=== PATIENT | male | born 1945 | race Caucasian/White ===

== ENCOUNTER 2020-01-01 09:48 | Observation (INO) | payer MEDICARE, OTHER ==
[~2020-01-01] VITALS: Ht 193 cm; Wt 111.6 kg
[~2020-01-01 09:48] MED LIST: CITA20TA6 PO; DIAZ5TAB PO; EPHEDRINE 50 MG/ML, 1ML IVPush PRN; GABA300C PO; GABA300C10 PO; HYDR-3240 PO; HYDR-3246 PO; HYDR25TA6 PO; LABETALOL 5MG/ML, 20ML IV PRN; LISI40TA PO; MEPERIDINE/PF 25MG/0.5ML IVPush PRN; MORP-52 PO; ONDANSETRON 2MG/ML, 2ML IVPush PRN; OXYC1TAB18 PO; OXYcodone 5 MG/5 ML ORAL.SOL UDC PO PRN; PROMETHAZINE 25 MG/ML, 1ML IVPush PRN; TRAZ-175 PO; hydrALAzine 20 MG/ML, 1ML IV PRN
[2020-01-01] MEDS ORDERED: LIDOCAINE-MPF 2% ,5ML ONE (10:15)
[2020-01-01] MEDS ORDERED: FENTANYL PF 250 MCG/5ML ONE (10:16)
[2020-01-01] MEDS ORDERED: BUPIVACAINE/PF 0.5% ONE (10:17)
[2020-01-01 10:18] VITALS: BP 167/90
[2020-01-01] MEDS ORDERED: CHLORHEXIDINE 15 ML UDC ONE (10:28)
[2020-01-01] MEDS ORDERED: CHLORHEXIDINE 15 ML UDC MM ONE (10:30)
[2020-01-01] MEDS ORDERED: ACETAMINOPHEN 500 MG TABLET PO ONE (10:30)
[2020-01-01] MEDS: LACTATED RINGERS 1,000 ML IV SCH ×2 (10:50→17:11)
[2020-01-01] MEDS ORDERED: SUCCINYLCHOLINE 20 MG/ML, 10ML ONE (13:11)
[2020-01-01] MEDS ORDERED: PROPOFOL 10 MG/ML, 20ML ONE (13:11)
[2020-01-01] MEDS ORDERED: DEXAMETHASONE 4 MG/ML, 1ML ONE (13:11)
[2020-01-01] MEDS ORDERED: CEFAZOLIN 1,000 MG ONE (13:11)
[2020-01-01] MEDS ORDERED: ONDANSETRON 2MG/ML, 2ML ONE (13:11)
[2020-01-01] MEDS ORDERED: FENTANYL PF 100 MCG/2ML ONE ×3 (13:28→15:04)
[2020-01-01] MEDS ORDERED: OXYcodone 5 MG/5 ML ORAL.SOL UDC ONE (14:44)
[2020-01-01] MEDS ORDERED: HYDROmorphone 1 MG/ML, 1ML INJ ONE (14:44)
[2020-01-01] MEDS: FENTANYL PF 100 MCG/2ML IV PRN ×4 (14:47→15:21)
[2020-01-01] MEDS: HYDROmorphone 1 MG/ML, 1ML INJ IVPush PRN ×5 (14:57→15:30)
[2020-01-01] MEDS ORDERED: POLYETHYLENE GLYCOL 17 GM PACKET PO PRN (15:00)
[2020-01-01] MEDS ORDERED: SENNA/DOCUSATE TABLET PO PRN (15:00)
[2020-01-01] MEDS ORDERED: PROMETHAZINE 12.5 MG SUPP PR PRN (15:00)
[2020-01-01] MEDS ORDERED: DIPHENHYDRAMINE 25 MG CAPSULE PO PRN (15:00)
[2020-01-01] MEDS ORDERED: DIPHENHYDRAMINE 50 MG/ML, 1ML IVPush PRN (15:00)
[2020-01-01] MEDS ORDERED: DIAZEPAM 5 MG TABLET PO PRN (15:00)
[2020-01-01] MEDS ORDERED: METOCLOPRAMIDE 5 MG/ML, 2ML IVPush PRN (15:00)
[2020-01-01] MEDS: SODIUM CHLORIDE 0.9% 1,000 ML IV SCH (15:00)
[2020-01-01] MEDS ORDERED: TRANEXAMIC ACID 1,000 MG in SODIUM CHLORIDE 0.9% 100 ML IVPB ONE (15:00)
[2020-01-01] MEDS: ACETAMINOPHEN 500 MG TABLET PO SCH ×2 (15:00→19:34)
[2020-01-01] MEDS ORDERED: BISACODYL 10 MG SUPP PR PRN (15:00)
[2020-01-01] MEDS ORDERED: PSYLLIUM PACKET PO PRN (15:00)
[2020-01-01] MEDS ORDERED: ONDANSETRON 4 MG TABLET PO PRN (15:00)
[2020-01-01] MEDS ORDERED: MAGNESIUM HYDROXIDE 8%, 30ML UDC PO PRN (15:00)
[2020-01-01] MEDS ORDERED: HYDROmorphone 1 MG/ML, 1ML INJ IVPush PRN (15:00)
[2020-01-01] MEDS ORDERED: METOCLOPRAMIDE 10MG TABLET PO PRN (15:00)
[2020-01-01] MEDS ORDERED: ALUMINUM/MAG/SIMETHICONE 30 ML UDC PO PRN (15:00)
[2020-01-01] MEDS ORDERED: ONDANSETRON 2MG/ML, 2ML IVPush PRN (15:00)
[2020-01-01] MEDS ORDERED: PROMETHAZINE 25 MG/ML, 1ML IM PRN (15:00)
[2020-01-01] MEDS ORDERED: HYDROmorphone 2 MG/ML, 1ML ONE (15:04)
[2020-01-01] MEDS ORDERED: LISINOPRIL 20 MG TABLET PO ONE (18:00)
[2020-01-01] MEDS: OXYcodone IR 5MG TABLET PO PRN ×3 (18:50→23:35)
[2020-01-01] MEDS: GABAPENTIN 300 MG CAPSULE PO SCH (19:34)
[2020-01-01] MEDS: DOCUSATE 100 MG CAPSULE PO SCH (19:34)
[2020-01-01] MEDS ORDERED: TAMSULOSIN 0.4 MG CAP.ER.24H PO ONE (20:00)
[2020-01-01 20:27] VITALS: BP 150/90
[2020-01-01] MEDS ORDERED: TRAZODONE 100MG TABLET PO PRN (21:00)
[2020-01-01 23:50] VITALS: BP 140/79
[2020-01-01] MEDS: CEFAZOLIN PMX 1GM/50ML 50 ML IVPB SCH (23:59)
[2020-01-02] MEDS: OXYcodone IR 5MG TABLET PO PRN ×3 (03:44→07:50)
[2020-01-02] MEDS: ACETAMINOPHEN 500 MG TABLET PO SCH ×2 (03:44→07:49)
[2020-01-02 03:49] VITALS: BP 156/87
[2020-01-02] MEDS: SODIUM CHLORIDE 0.9% 1,000 ML IV SCH (04:20)
[2020-01-02] MEDS ORDERED: ASPIRIN 81 MG TABLET EC PO SCH (06:00)
[2020-01-02] MEDS ORDERED: DEXAMETHASONE 4 MG/ML, 1ML IVPush SCH (06:00)
[2020-01-02 07:40] VITALS: BP 165/90
[2020-01-02] MEDS: DOCUSATE 100 MG CAPSULE PO SCH (07:49)
[2020-01-02] MEDS: GABAPENTIN 300 MG CAPSULE PO SCH (07:50)
[2020-01-02] MEDS ORDERED: LISINOPRIL 40 MG TABLET PO SCH (09:00)
[2020-01-02] MEDS ORDERED: CITALOPRAM 20 MG TABLET PO SCH (09:00)
[2020-01-02] MEDS: CEFAZOLIN PMX 1GM/50ML 50 ML IVPB SCH (10:40)
[2020-01-02 11:20] VITALS: BP 150/82
== END 2020-01-02 11:30 | disposition home or self-care (01) ==
LOC: OUT 09:48 → ORIP 14:37 → 4NE 15:45 → DCLOUNGE 01-02 11:27
PROVIDERS: ADMIT Orthopaedic Surgery; ATTEND Orthopaedic Surgery
DX: M17.12 Unilateral primary osteoarthritis, left knee (principal); I10 Essential (primary) hypertension; Z79.899 Other long term (current) drug therapy; Z87.891 Personal history of nicotine dependence; Z96.652 Presence of left artificial knee joint
CPT/HCPCS: 27447; 36415; 73560; 85014; 85018; 96365; 96366; 96375; 97110; 97161; C1713; C1776; G0378; J0330; J0690; J1100; J1170; J2405; J2704; J2795; J3010; J3370; J3490; J7120; S0020